=== PATIENT | female | born 1950 | race Caucasian/White ===

== ENCOUNTER 2020-03-10 12:41 | Inpatient (IN) ==
[2020-03-10] MEDS ORDERED: 0.9 % Sodium Chloride 1,000 ML IVC ONE (13:15)
[2020-03-10] MEDS ORDERED: Ondansetron 4 MG/2 ML VIAL IVP ONE (13:15)
[2020-03-10] MEDS ORDERED: Morphine Sulfate 2 MG/ML SYRINGE IVP ONE ×2 (13:15→15:56)
[2020-03-10 13:40] LABS: Basophils # 0.1 K/mcL (0.0-0.2); Basophils % 0.3 %; Eosinophils # 0.2 K/mcL (0.0-0.6); Eosinophils % 0.6 %; Hemoglobin 10.7 g/dL (11.5-15.4); Immature Granulocytes % 12.2 % (0-4); Lymphocytes # 0.2 K/mcL (0.6-4.6); Lymphocytes % 0.6 %; Mean Corpuscular HGB Conc 32.4 g/dL (31.6-35.5); Mean Corpuscular Hemoglobin 31.1 pg (28.0-33.3); Mean Corpuscular Volume 95.9 fL (83.0-100.0); Mean Platelet Volume 10.7 fL (9.4-12.4); Monocytes # 0.1 K/mcL (0.0-1.3); Monocytes % 0.5 %; Neutrophils # 22.6 K/mcL (1.6-8.9); Platelet Count 251 K/mcL (140-400); Red Blood Count 3.44 M/mcL (3.82-4.97); Red Cell Distribution Width 17.2 % (11.5-14.5); Segmented Neutrophils % 85.8 %; White Blood Count 26.3 K/mcL (4.3-11.1)
[2020-03-10 14:00] LABS: Alanine Aminotransferase 8 Units/L (7-52); Albumin 3.9 g/dL (3.5-5.7); Albumin/Globulin Ratio 1.6 (1.1-2.2); Alkaline Phosphatase 99 Units/L (34-104); Anisocytosis 1+ (Not Present); Aspartate Amino Transferase 14 Units/L (13-39); BUN/Creatinine Ratio 27 (6-26); Bilirubin,Total 0.7 mg/dL (0.3-1.0); Blood Urea Nitrogen 17 mg/dL (8-23); Calcium 8.7 mg/dL (8.6-10.3); Carbon Dioxide 18 mEq/L (23-29); Chloride 101 mEq/L (98-107); Globulin 2.4 g/dL (2.4-3.5); Glucose 129 mg/dL (70-105); Hypersegmented Neutrophils Present (Not Present); Lipase 7 Units/L (11-82); Osmolality,Calculated 277 (280-300); Platelet Estimate Normal (Normal); Potassium 3.4 mEq/L (3.5-5.1); Sodium 132 mEq/L (136-145); Total Protein 6.3 g/dL (6.4-8.9); Toxic Granulation Present (Not Present); Toxic Vacuolation Present (Not Present); Troponin I 0.03 ng/mL (< 0.04); eGFR For African Americans > 60 (> 60); eGFR For Non-African Americans > 60 (> 60)
[2020-03-10] MEDS ORDERED: *HR* Promethazine 25 MG/ML VIAL IVP ONE (14:03)
[2020-03-10] MEDS ORDERED: MetroNIDAZOLE 500 MG/100 ML 500 MG/100 ML BAG IVPB ONE (15:29)
[2020-03-10 15:30] LABS: Bilirubin,Urine Negative (Negative); Blood,Urine Negative (Negative); Clarity,Urine Clear (Clear); Color,Urine Light-Yellow (Yellow); Glucose,Urine (UA) Normal (Normal); Ketones,Urine 20 mg/dL (Negative); Leukocyte Esterase,Urine Negative (Negative); Nitrite,Urine Negative (Negative); Protein,Urine Trace mg/dL (Neg-Trace); Urobilinogen,Urine Normal (Normal)
[2020-03-10] MEDS ORDERED: Albuterol 2.5 MG/3 ML NEBULIZER IH PRN (16:24)
[2020-03-10] MEDS ORDERED: Potassium Chloride 40 MEQ, Lidocaine 1% 2 ML in 0.9 % Sodium Chloride 500 ML IVPB ONE (17:54)
[2020-03-10] MEDS ORDERED: Naloxone 0.4 MG/ML INJ IVP PRN (18:02)
[2020-03-10] MEDS ORDERED: Ondansetron ODT 4 MG TAB.RAPDIS SL PRN (18:03)
[2020-03-10] MEDS: *HR* Heparin 5,000 UNIT/ML VIAL SQ SCH (18:35)
[2020-03-10] MEDS: 0.9 % Sodium Chloride w KCl 20 MEQ/1,000 ML MLS IVC SCH (18:35)
[2020-03-10] MEDS: Pramoxine 15 GM FOAM Package TP SCH (22:37)
[2020-03-11] MEDS: MetroNIDAZOLE 500 MG/100 ML 500 MG/100 ML BAG IVPB SCH ×3 (00:09→16:08)
[2020-03-11] MEDS: 0.9 % Sodium Chloride w KCl 20 MEQ/1,000 ML MLS IVC SCH ×2 (00:10→09:34)
[2020-03-11 01:10] LABS: Basophils # 0.1 K/mcL (0.0-0.2); Basophils % 0.4 %; Eosinophils # 0.2 K/mcL (0.0-0.6); Eosinophils % 1.2 %; Immature Granulocytes % 17.2 % (0-4); Lymphocytes # 0.2 K/mcL (0.6-4.6); Lymphocytes % 1.1 %; Mean Corpuscular HGB Conc 32.2 g/dL (31.6-35.5); Mean Corpuscular Hemoglobin 31.6 pg (28.0-33.3); Mean Corpuscular Volume 98.2 fL (83.0-100.0); Mean Platelet Volume 10.3 fL (9.4-12.4); Monocytes # 0.2 K/mcL (0.0-1.3); Monocytes % 0.8 %; Neutrophils # 15.8 K/mcL (1.6-8.9); Platelet Count 156 K/mcL (140-400); Red Blood Count 2.75 M/mcL (3.82-4.97); Red Cell Distribution Width 17.3 % (11.5-14.5); Segmented Neutrophils % 79.3 %; White Blood Count 19.9 K/mcL (4.3-11.1)
[2020-03-11 01:12] LABS: Hemoglobin 8.7 g/dL (11.5-15.4)
[2020-03-11 01:29] LABS: BUN/Creatinine Ratio 20 (6-26); Blood Urea Nitrogen 11 mg/dL (8-23); Calcium 7.8 mg/dL (8.6-10.3); Carbon Dioxide 21 mEq/L (23-29); Chloride 108 mEq/L (98-107); Glucose 93 mg/dL (70-105); Osmolality,Calculated 281 (280-300); Potassium 3.3 mEq/L (3.5-5.1); Sodium 136 mEq/L (136-145); eGFR For African Americans > 60 (> 60); eGFR For Non-African Americans > 60 (> 60)
[2020-03-11 01:38] LABS: Anisocytosis 1+ (Not Present)
[2020-03-11 01:39] LABS: Platelet Estimate Normal (Normal); Toxic Granulation Present (Not Present)
[2020-03-11] MEDS: *HR* Heparin 5,000 UNIT/ML VIAL SQ SCH ×2 (05:47→15:59)
[2020-03-11] MEDS: Pramoxine 15 GM FOAM Package TP SCH ×3 (09:34→21:03)
[2020-03-11 13:29] LABS: % Iron Saturation 51 % (15-50); Iron 104 mcg/dL (50-170); Transferrin 145 mg/dL (203-362)
[2020-03-11 13:46] LABS: Ferritin 203 ng/mL (10-120)
[2020-03-11 13:49] LABS: Folate 4.8 ng/mL (3.0-16.0)
[2020-03-11] MEDS: 0.9 % Sodium Chloride 1,000 ML IVC SCH ×2 (15:50→23:56)
[2020-03-11] MEDS ORDERED: NON-FORMULARY MEDICATION 1 EACH EACH (Ondansetron Hcl [Ondansetron Hcl] 8 MG) PO PRN (17:53)
[2020-03-11] MEDS ORDERED: *HR* FentaNYL PATCH 12 MCG PATCH TD SCH (18:00)
[2020-03-11] MEDS ORDERED: QUEtiapine Fumarate 100 MG TABLET PO SCH (21:00)
[2020-03-11] MEDS: metroNIDAZOLE 500 MG TABLET PO SCH (21:01)
[2020-03-12] MEDS: *HR* Heparin 5,000 UNIT/ML VIAL SQ SCH (05:10)
[2020-03-12 05:50] LABS: Alanine Aminotransferase 5 Units/L (7-52); Albumin/Globulin Ratio 1.7 (1.1-2.2); Alkaline Phosphatase 90 Units/L (34-104); Aspartate Amino Transferase 11 Units/L (13-39); BUN/Creatinine Ratio 15 (6-26); Bilirubin,Total 0.4 mg/dL (0.3-1.0); Blood Urea Nitrogen 8 mg/dL (8-23); Calcium 7.4 mg/dL (8.6-10.3); Carbon Dioxide 20 mEq/L (23-29); Chloride 113 mEq/L (98-107); Globulin 1.8 g/dL (2.4-3.5); Glucose 92 mg/dL (70-105); Osmolality,Calculated 284 (280-300); Potassium 3.5 mEq/L (3.5-5.1); Sodium 138 mEq/L (136-145); Total Protein 4.8 g/dL (6.4-8.9); eGFR For African Americans > 60 (> 60); eGFR For Non-African Americans > 60 (> 60)
[2020-03-12 06:55] LABS: Eosinophils # 0.4 K/mcL (0.0-0.6); Hematocrit 24.7 % (35.3-44.9); Hemoglobin 8.1 g/dL (11.5-15.4); Immature Platelets 4.6 % (1.1-6.1); Mean Corpuscular HGB Conc 32.8 g/dL (31.6-35.5); Mean Corpuscular Hemoglobin 32.5 pg (28.0-33.3); Mean Corpuscular Volume 99.2 fL (83.0-100.0); Mean Platelet Volume 10.8 fL (9.4-12.4); Red Blood Count 2.49 M/mcL (3.82-4.97); Red Cell Distribution Width 17.2 % (11.5-14.5); White Blood Count 18.5 K/mcL (4.3-11.1)
[2020-03-12 06:56] LABS: Platelet Count 74 K/mcL (140-400)
[2020-03-12 07:20] LABS: Anisocytosis 1+ (Not Present); Monocytes # 0.2 K/mcL (0.0-1.3); Platelet Estimate Slight Decrease (Normal); Toxic Granulation Present (Not Present)
[2020-03-12 07:21] LABS: Dohle Bodies Present (Not Present)
[2020-03-12] MEDS ORDERED: Famotidine 20 MG TABLET PO SCH (07:30)
[2020-03-12] MEDS ORDERED: FLUoxetine 20 MG CAPSULE PO SCH (09:00)
[2020-03-12] MEDS: metroNIDAZOLE 500 MG TABLET PO SCH ×2 (10:11→15:46)
[2020-03-12] MEDS: 0.9 % Sodium Chloride 1,000 ML IVC SCH ×2 (13:11→16:15)
[2020-03-12] MEDS: Pramoxine 15 GM FOAM Package TP SCH ×2 (16:16→16:17)
[2020-03-12 16:24] VITALS: BP 135/66
== END 2020-03-12 18:51 | disposition home or self-care (01) | DRG 391 ==
LOC: 2ANU 12:41 → EMEROOARM 12:41 → 2ANU 16:42
PROVIDERS: ADMIT Internal Medicine; ATTEND Internal Medicine